=== PATIENT | male | born 1995 | race Caucasian/White ===

== ENCOUNTER 2017-09-02 21:26 | Emergency (ER) | payer BC, OTHER ==
[2017-09-02] MEDS ORDERED: Diphtheria,Pertussis(Acell),Tetanus Vaccine 0.5 ML SDV IM ONE (22:47)
[2017-09-02] MEDS ORDERED: Lidocaine 1% with EPINEPHrine 1:100,000 20 ML MDV INJECT ONE (22:47)
--- NOTE | 2017-09-02 22:52 | EDM.PDOC ---
ED HPI GENERAL MEDICAL PROBLEM - General Chief Complaint: Laceration Stated Complaint: LEFT HAND INJURIED WHILE CUTTING WOOD Time Seen by Provider: 09/02/17 22:30 Source of Information: Reports: Patient History Limitations: Reports: No Limitations - History of Present Illness INITIAL COMMENTS - FREE TEXT/NARRATIVE: Patient was splitting wood with a hatchet accidentally cutting himself when it slipped off the piece of wood and hit him on the dorsal aspect of the hand. Bleeding controlled with direct pressure. Tetanus status unknown. Minimal pain at this point. Pain is localized. No sensory/motor deficits noted. No pain to the remaining aspects of the hand, fingers, hand, and/or wrist. Hand Pain Score (Numeric/FACES): 4 - Related Data Allergies Allergy/AdvReac Type Severity Reaction Status Date / Time No Known Allergies Allergy Verified 09/02/17 21:42 Home Meds: Home Meds . [No Known Home Meds] 09/02/17 [History] Past Medical History - Past Health History Medical/Surgical History: Denies Medical/Surgical History - Past Surgical History HEENT Surgical History: Reports: Oral Surgery Other HEENT Surgeries/Procedures: [place] teeth Social & Family History - Tobacco Use Smoking Status *Q: Current Every Day Smoker Years of Tobacco use: 3 Packs/Tins Daily: 0.5 - Alcohol Use Days Per Week of Alcohol Use: 3 Number of Drinks Per Day: 3 Total Drinks Per Week: 9 - Recreational Drug Use Recreational Drug Use: No ED ROS GENERAL - Review of Systems Review Of Systems: ROS reveals no pertinent complaints other than HPI. ED EXAM, SKIN/RASH Exam: See Below Exam Limited By: No Limitations General Appearance: Alert, WD/WN, No Apparent Distress Ears: Hearing Grossly Normal Nose: Normal Inspection Throat/Mouth: Normal Voice, No Airway Compromise Neck: Normal Inspection, Supple Peripheral Pulses: 4+: Radial (L) Extremities: Other (2.5 cm subcutaneous laceration to the dorsal aspect of the left hand along the base of the 5th metacarpal. No foreign debris noted. ) Neurological: Alert, Oriented, CN II-XII Intact, Normal Cognition, No Motor/ Sensory Deficits Psychiatric: Normal Affect, Normal Mood Skin: Warm, Dry, Normal Color ED SKIN PROCEDURES - Laceration/Wound Repair Left Dorsal Hand Lac/Wound length In cm: 2.5 Appearance: Subcutaneous, Clean Distal NVT: Neuro & Vascular Intact, No Tendon Injury Anesthetic Type: Local Local Anesthesia - Lidocaine (Xylocaine): 1% with EPI Local Anesthetic Volume: 5cc Skin Prep: Chlorhexidine (Hibiciens), Saline, Sterile Drape Exploration/Debridement/Repair: Wound Explored, In a Bloodless Field, Explored to Base, No Foreign Material Found Closed with: Sutures Suture Size: 4-0 # of Sutures: 4 Suture Type: Prolene, Interrupted (x1), Mattress (x3) Drain Placement: No Sterile Dressing Applied: Nurse Tetanus Status Addressed: Yes Complications: No Course - Vital Signs Last Recorded V/S: Last Vital Signs Temp 98.4 F 09/02/17 21:42 Pulse 94 09/02/17 21:42 Resp 18 09/02/17 21:42 BP 130/75 09/02/17 21:42 Pulse Ox 100 09/02/17 21:42 - Orders/Labs/Meds Orders: Active Orders 24 hr Category Date Time Status Vaccines to be Administered [RC] PER UNIT ROUTINE Care 09/02/17 22:48 Active Hand Comp Min 3V Lt [CR] Stat Exams 09/02/17 22:47 Taken Meds: Medications Discontinued Medications Generic Name Dose Route Start Last Admin Trade Name Freq PRN Reason Stop Dose Admin Diphtheria/Tetanus/Acell Pertussis 0.5 ml 09/02/17 22:47 09/02/17 23:00 Adacel IM 09/02/17 22:48 0.5 ml .ONCE ONE Administration Lidocaine/Epinephrine 20 ml 09/02/17 22:47 09/02/17 23:00 Xylocaine 1% With Epinephrine 1:100,000 INJECT 09/02/17 22:48 20 ml ONETIME ONE Administration - Re-Assessments/Exams Free Text/Narrative Re-Assessment/Exam: Laceration closed no complications. Tetanus status has been updated. No antibiotics required at this point. X-ray of the left hand did not reveal any acute bony abnormalities. Reviewed with Dr. Mckenna. Final interpretation is pending. Departure - Departure Time of Disposition: 23:12 Disposition: Home, Self-Care 01 Condition: Good Clinical Impression: Laceration of hand Qualifiers: Encounter type: initial encounter Foreign body presence: without foreign body Laterality: left Qualified Code(s): S61.412A - Laceration without foreign body of left hand, initial encounter - Discharge Information Instructions: Sutured Wound Care, Laceration Care, Adult, [id number], Stitches, [place], or Adhesive Wound Closure, [id number] Referrals: PCP,Not In Area [Primary Care Provider] - Forms: ED Department Discharge Additional Instructions: Cleanse site twice daily, PAT dry, reapply bacitracin ointment. Keep area clean and dry. Do not soak wound. Followup with a provider in 7 to 10 days for suture removal. Return back to the ED for increased redness, increased swelling , or purulent drainage. - My Orders Last 24 Hours: My Active Orders 09/02/17 22:47 Hand Comp Min 3V Lt [CR] Stat 09/02/17 22:48 Vaccines to be Administered [RC] PER UNIT ROUTINE - Assessment/Plan Last 24 Hours: My Active Orders 09/02/17 22:47 Hand Comp Min 3V Lt [CR] Stat 09/02/17 22:48 Vaccines to be Administered [RC] PER UNIT ROUTINE
--- NOTE | 2017-09-04 07:28 | CR ---
Left hand: Four views of the left hand were obtained. Comparison: No prior study. Soft tissue injury is seen at the base of the hand. No fracture, dislocation or other bony abnormality is seen. Impression: 1. Soft tissue injury. No bony abnormality is identified on the left hand exam. Diagnostic code #2
== END 2017-09-02 23:40 | disposition home or self-care (01) ==
LOC: JD.ED 21:26
DX: S61.412A Laceration without foreign body of left hand, initial encounter (principal); W26.8XXA Contact with other sharp object(s), not elsewhere classified, initial encounter; Z23 Encounter for immunization; F17.210 Nicotine dependence, cigarettes, uncomplicated
CPT/HCPCS: 12001; 73130-26-LT; 73130-LT; 90471; 90715; 99283-25